=== PATIENT | female | born 1990 | race African-American/Black ===

== ENCOUNTER 2017-09-01 04:31 | Emergency (ER) | payer MEDICAID ==
[~2017-09-01] VITALS: Ht 180.3 cm; Wt 68.0 kg
[2017-09-01 04:45] VITALS: BP 127/81
[2017-09-01] MEDS ORDERED: IBUPROFEN600 MG ORAL (04:47)
[2017-09-01] MEDS ORDERED: MUPIROCIN22 GM TOPIC (05:00)
[2017-09-01] MEDS ORDERED: DOXYCYCLINE MO100 MG ORAL (05:00)
--- NOTE | 2017-09-01 05:01 | Emergency Room Report ---
History of Present Illness General Chief Complaint: Skin Rash/Abscess Source: Patient Present Illness HPI This is a 27-year-old female with no past medical history. She presents with chief complaint of redness to her right forearm. Onset yesterday. She had a tattoo done 3-4 days ago. Yesterday she noticed some burning sensation. She said he got worse this morning. The redness seemed to be spreading. No fever chills. no swelling. Never had this problem before. Allergies: Coded Allergies: No Known Allergies (Unverified , 09/01/17) Patient History Past Medical History: see triage record, old chart reviewed Past Surgical History: none Pertinent Family History: none Social History: Denies: smoking Last Menstrual Period: 07/21/17 Now: No : 3 Para: 2 Immunizations: other Reviewed Nursing Documentation: PMH: Agreed; PSxH: Agreed Nursing Documentation-PMH Past Medical History: No Stated History Review of Systems Eye: Denies: eye pain, blurred vision ENT: Denies: ear pain, nose congestion, throat swelling Respiratory: Denies: cough, shortness of breath Cardiovascular: Denies: chest pain, palpitations Gastrointestinal: Denies: abdominal pain, diarrhea, nausea, vomiting Musculoskeletal: Denies: back pain, joint pain Skin: Denies: rash Neurological: Denies: headache, numbness Endocrine: Denies: increased thirst, increased urine Hematologic/Lymphatic: Denies: easy bruising All Other Systems: negative except mentioned in HPI Physical Exam Vital Signs Date Time Temp Pulse Resp B/P (MAP) Pulse Ox O2 Delivery O2 Flow Rate FiO2 09/01/17 04:43 98.5 90 14 127/81 98 Room Air 98.4 vitals normal Sp02 EP Interpretation: reviewed, normal General Appearance: well appearing, no apparent distress, alert Head: normocephalic, atraumatic Eyes: bilateral eye PERRL, bilateral eye EOMI ENT: hearing grossly normal, normal pharynx Neck: full range of motion, supple, no meningismus Respiratory: chest non-tender, lungs clear, normal breath sounds Cardiovascular #1: regular rate, rhythm, no murmur Gastrointestinal: normal bowel sounds, non tender, no mass, no organomegaly, no bruit, non-distended Musculoskeletal: back normal, gait/station normal, normal range of motion, other - Right forearm over the wrist: There is slight redness over her tattoo area. No fluctuant. Full range of motion of the wrist. No crepitance. Neurologic: alert, oriented x3 Psychiatric: mood/affect normal Skin: warm/dry Medical Decision Making Diagnostic Impression: Primary Impression: Cellulitis of wrist ER Course Patient presents with a cellulitis over the tattoo area. This could be staph versus strep. We'll discharge home. No evidence of necrotizing fasciitis or abscess. Last Vital Signs Date Time Temp Pulse Resp B/P (MAP) Pulse Ox O2 Delivery O2 Flow Rate FiO2 09/01/17 04:45 98.4 89 14 127/81 98 Room Air 98.4 Status: unchanged Disposition: HOME, SELF-CARE Condition: Scripts Mupirocin* (MUPIROCIN*) 22 Gm Oint...g. 1 APPLIC TOPIC THREE TIMES A DAY, #22 GM Prov: PAULA DOBSON M.D. 09/01/17 Doxycycline Monohydrate* (DOXYCYCLINE MONOHYDRATE*) 100 Mg Capsule 100 MG ORAL Q12H, #14 CAP 0 Refills Prov: PAULA DOBSON M.D. 09/01/17 Referrals: [facility],REFERRING (PCP) Additional Instructions: Follow-up with your DrStephanie in 2-3 days for recheck. Return if symptom worsen. Clean with hydrogen peroxide first, then put antibiotic ointment. PAULA DOBSON M.D. Sep 01, 2017 05:00
[2017-09-01 05:04] VITALS: BP 127/81
== END 2017-09-01 05:05 | disposition home or self-care (01) ==
LOC: EMR 04:51
DX: L03.113 Cellulitis of right upper limb (principal)
CPT/HCPCS: 99284